=== PATIENT | female | born 1990 | race Hispanic/Latino ===

== ENCOUNTER → 2017-11-08 | Day surgery (SDC) | payer BC ==
[~2017-11-08] MED LIST: IRON PO; METRONIDAZOLE 500MG/NS 100ML 100 ML IV ONE; MIDAZOLAM HCL 2 MG/2 ML VIAL ONE; PROPOFOL IV EMULSION 10 MG/ML 20 ML VIAL ONE
--- NOTE | 2017-11-08 17:38 | Operative Report ---
DATE OF PROCEDURE: November 08, 2017 PROCEDURE PERFORMED: Esophagogastroduodenoscopy with biopsies. INDICATIONS FOR ESOPHAGOGASTRODUODENOSCOPY: Acid reflux, halitosis. MEDICATION: Patient was done under MAC. Please see anesthesiologist's note. PROCEDURE: With the patient in the left lateral decubitus position, the flexible fiberoptic Olympus gastroscope was introduced into the esophagus under direct visualization without any difficulty. There was some patchy erythema noted in the distal esophagus. The scope was then advanced with ease into the stomach, and mucosa overlying the antrum and the body revealed some diffuse erythema and mild to moderate edema, and biopsies were obtained and sent to stain for H. pylori. Pylorus appeared to be of normal contour and shape, was intubated with ease, and the scope was advanced all the way to the 2nd portion of the duodenum. The scope was then withdrawn slowly. Mucosa overlying the proximal 2nd portion and the duodenal bulb appeared to be within normal limits. The scope was then withdrawn back into the stomach and retroflexed, and the mucosa overlying the fundus and the cardia appeared to be within normal limits. The scope was then straightened out. The stomach was decompressed. The scope was subsequently withdrawn. Patient tolerated the procedure well. IMPRESSION: 1. Distal esophagitis. 2. Gastritis biopsied. Biopsies sent to stain for H. pylori. PLAN: Follow up histology. Initiate Protonix 40 mg 1 p.o. q.a.m. a.c., Flagyl 500 mg 1 p.o. q.i.d. times 14 days for possible SIBO/small intestinal bacterial overgrowth. Job#: [id number] MATT
== END | disposition home or self-care (01) ==
LOC: OR 13:07
PROVIDERS: ATTEND Internal Medicine Gastroenterology
DX: R19.6 Halitosis (principal); K29.70 Gastritis, unspecified, without bleeding; K21.9 Gastro-esophageal reflux disease without esophagitis; K20.9 Esophagitis, unspecified
CPT/HCPCS: 43239; 81025; J2250